=== PATIENT | male | born 1975 | race American Indian/Alaskan Native ===

== ENCOUNTER 2017-02-05 17:30 | Emergency (ER) | payer BC ==
[2017-02-05 18:04] VITALS: BMI 32.3
--- NOTE | 2017-02-05 18:27 | ED PDOC ---
Arrival/HPI - General Chief Complaint: Abnormal Labs Time Seen by Provider: 02/05/17 18:16 Historian: Patient - History of Present Illness Narrative History of Present Illness (Text): 02/05/17 18:20 A 41 year old male presents to the emergency room for further evaluation of hypocalcemia. Patient reports that his plastic surgeon had notified him to come to the emergency room for further evaluation after his Calcium levels were reported to be 5.3. Patient has no pain or any other complaints at this time. pt asking for po in the er, no h/o of muscle spasm or other complaints. PMD: Non CPH (IA) 02/05/17 20:25 Time/Duration: Other Modifying Factors (Text): none Context: Home Associated Symptoms (Text): none Past Medical History - Provider Review Nursing Documentation Reviewed: Yes - Cardiac Hx Cardiac Disorders: Yes Hx Hypertension: Yes - Pulmonary Hx Respiratory Disorders: No - Neurological Hx Neurological Disorder: No - HEENT Hx HEENT Disorder: No - Renal Hx Renal Disorder: No - Endocrine/Metabolic Hx Endocrine Disorders: No - Hematological/Oncological Hx Blood Disorders: Yes - Integumentary Hx Dermatological Disorder: No - Musculoskeletal/Rheumatological Hx Musculoskeletal Disorders: No - Gastrointestinal Hx Gastrointestinal Disorders: No - Genitourinary/Gynecological Hx Genitourinary Disorders: No - Psychiatric Hx Psychophysiologic Disorder: No Hx Substance Use: No - Surgical History Hx Eye Surgery: Yes Hx Gastric Bypass Surgery: Yes ("lap band") Family/Social History - Physician Review Nursing Documentation Reviewed: Yes Family/Social History: No Known Family HX Smoking Status: Never Smoked Hx Alcohol Use: No Hx Substance Use: No Allergies/Home Meds Allergies/Adverse Reactions: Allergies No Known Allergies Allergy (Verified 02/05/17 18:04) Home Medications: Home Meds Medication Instructions Recorded Confirmed Acyclovir [Zovirax] 300 mg PO DAILY 02/05/17 02/05/17 Emtricita/rilpivir/tenofovir 1 tab PO DAILY 02/05/17 02/05/17 [Complera 200 mg-25 mg-300 mg] Lisinopril [Zestril] 20 mg PO DAILY 02/05/17 02/05/17 Nebivolol [Bystolic] 0 mg PO DAILY 02/05/17 02/05/17 Zolpidem [Ambien] 10 mg PO HS 02/05/17 02/05/17 Review of Systems - Physician Review All systems were reviewed & negative as marked: Yes - Review of Systems Constitutional: absent: Fevers Respiratory: absent: SOB, Cough Cardiovascular: absent: Chest Pain Physical Exam Vital Signs Reviewed: Yes Vital Signs Temp Pulse Resp BP Pulse Ox 02/05/17 20:44 98.5 F 62 18 158/83 H 98 02/05/17 18:25 98.5 F 62 18 158/83 H 98 02/05/17 18:04 99 F 55 L 16 139/88 99 Temperature: Afebrile Blood Pressure: Normal Pulse: Bradycardic Respiratory Rate: Normal Appearance: Positive for: Well-Appearing, Non-Toxic, Comfortable Pain Distress: None Mental Status: Positive for: Alert and Oriented X 3 - Systems Exam Head: Present: Atraumatic, Normocephalic Pupils: Present: PERRL Extroacular Muscles: Present: EOMI Conjunctiva: Present: Normal Mouth: Present: Moist Mucous Membranes Neck: Present: Normal Range of Motion Respiratory/Chest: Present: Clear to Auscultation, Good Air Exchange. No: Respiratory Distress, Accessory Muscle Use Cardiovascular: Present: Regular Rate and Rhythm, Normal S1, S2. No: Murmurs Abdomen: Present: Normal Bowel Sounds. No: Tenderness, Distention, Peritoneal Signs Back: Present: Normal Inspection Upper Extremity: Present: Normal Inspection. No: Cyanosis, Edema Lower Extremity: Present: Normal Inspection. No: Edema Neurological: Present: GCS=15, CN II-XII Intact, Speech Normal Skin: Present: Warm, Dry, Normal Color. No: Rashes Psychiatric: Present: Alert, Oriented x 3, Normal Insight, Normal Concentration Medical Decision Making ED Course and Treatment: 02/05/17 18:16 Impression: 41 year old male with hypocalcemia. Differential Diagnosis included but are not limited to: hypocalcemia Plan: -- EKG -- Labs -- Reassess and disposition Prior Visits: Notes and results from previous visits were reviewed. Progress Notes: EKG: Ordered, reviewed, and independently interpreted the EKG. Rate : 56 BPM Rhythm : Sinus Bradycardia Interpretation : No ST/T changes, normal intervals. Comparison : No previous EKG for comparison. 02/05/17 20:25 calcium level normal. pt well appearing in nad. stable for d/c. ?lab error outpt. lab reports ionized calcium is sendout. low suspicion of low ionized calcium as total is wnl, and pt is asympomatic 02/05/17 20:42 - Lab Interpretations Lab Results: 02/05/17 19:00 02/05/17 19:00 Lab Results 02/05/17 19:00: WBC 9.0, RBC 4.01, Hgb 10.6 L, Hct 33.0 L, MCV 82.3, MCH 26.4, MCHC 32.1, RDW 14.5, Plt Count 318, MPV 9.9, Gran % 51.7, Lymph % (Auto) 37.8 H , Burnet % (Auto) 7.4 H, Eos % (Auto) 2.9, Baso % (Auto) 0.2, Gran # 4.63, Lymph # 3.4, Burnet # 0.7 H, Eos # 0.3, Baso # 0.02, PT 11.7, INR 1.08, APTT 25.4, Sodium 137, Potassium 4.2, Chloride 101, Carbon Dioxide 29, Anion Gap 11, BUN 12 , Creatinine 1.1, Est GFR ( Amer) > 60, Est GFR (Non-Af Amer) > 60, Random Glucose 87, Calcium 9.4, Phosphorus 3.8, Magnesium 2.0, Total Bilirubin 0.8, AST 23, ALT 33, Alkaline Phosphatase 83, Total Protein 7.3, Albumin 3.8, Globulin 3.5, Albumin/Globulin Ratio 1.1 I have reviewed the lab results: Yes - EKG Interpretation Interpreted by ED Physician: Yes Type: 12 lead EKG - Scribe Statement The provider has reviewed the documentation as recorded by the Ari Morin training under Kun Diehl All medical record entries made by the Ari were at my direction and personally dictated by me. I have reviewed the chart and agree that the record accurately reflects my personal performance of the history, physical exam, medical decision making, and the department course for this patient. I have also personally directed, reviewed, and agree with the discharge instructions and disposition. Disposition/Present on Arrival - Present on Arrival Any Indicators Present on Arrival: No History of DVT/PE: No History of Uncontrolled Diabetes: No Urinary Catheter: No History of Decub. Ulcer: No History Surgical Site Infection Following: None - Disposition Have Diagnosis and Disposition been Completed?: Yes Diagnosis: Well adult Disposition: HOME/ ROUTINE Disposition Time: 20:26 Condition: STABLE Discharge Instructions (ExitCare): Hypocalcemia (ED) Additional Instructions: please follow up with your doctor. return to er with worsening symptoms or concenrs. Referrals: Melisa Carrillo, [Primary Care Provider] - Follow up with primary
[2017-02-05 18:28] VITALS: BP 158/83; PULSE 62; RESP 18; TEMP 98.5; O2SAT 98
[2017-02-05 19:26] LABS: ALB/GLOB RATIO 1.1 (1.1-1.8); ALKALINE PHOSPHATASE 83 U/L (38-133); ALT/SGPT 33 U/L (7-56); AST/SGOT 23 U/L (15-59); BILIRUBIN,TOTAL 0.8 mg/dL (0.2-1.3); BLOOD UREA NITROGEN 12 mg/dL (7-21); CALCIUM 9.4 mg/dL (8.4-10.5); CARBON DIOXIDE 29 mmol/L (21-33); CHLORIDE 101 mmol/L (98-107); GFR AFRICAN-AMERICAN > 60; GLUCOSE,RANDOM 87 mg/dL (70-110); PHOSPHOROUS 3.8 mg/dL (2.5-4.5); POTASSIUM 4.2 mmol/L (3.6-5.0); SODIUM 137 mmol/L (132-148); TOTAL PROTEIN 7.3 g/dL (5.8-8.3)
[2017-02-05 19:40] LABS: INR 1.08 (0.93-1.08); PARTIAL THROMBOPLASTIN TIME 25.4 Seconds (23.7-30.8)
[2017-02-05 20:01] LABS: ADD MANUAL DIFF? NO
[2017-02-05 20:05] LABS: BASO # 0.02 K/mm3 (0.0-2.0); BASO % 0.2 % (0.0-3.0); EOS # 0.3 (0.0-0.7); EOS % 2.9 % (1.5-5.0); GRAN # 4.63 (1.4-6.5); GRAN % 51.7 % (50.0-68.0); LYMPH # 3.4 (1.2-3.4); LYMPH % 37.8 % (22.0-35.0); MEAN CELL VOLUME 82.3 fL (80.0-105.0); MEAN CORPUSCULAR HEMOGLOBIN 26.4 pg (25.0-35.0); MEAN CORPUSCULAR HGB CONC 32.1 g/dl (31.0-37.0); MEAN PLATELET VOLUME 9.9 fl (7.0-11.0); MONO # 0.7 (0.1-0.6); MONO % 7.4 % (1.0-6.0); PLATELET COUNT 318 10^3/uL (120.0-450.0); RED CELL DISTRIBUTION WIDTH 14.5 % (11.5-14.5)
--- NOTE | 2017-02-06 10:50 | CARD ---
APPROVED REPORT EKG Measurement Heart [id number] <Conclusion> Sinus bradycardia Leftward axis Otherwise normal ECG
== END 2017-02-05 20:44 | disposition home or self-care (01) ==
LOC: ED 17:30 → MERGE 17:30 → ED 20:44
DX: Z00.00 Encounter for general adult medical examination without abnormal findings (principal); I10 Essential (primary) hypertension